=== PATIENT | male | born 1995 | race African-American/Black ===

== ENCOUNTER → 2023-07-05 | Outpatient (CLI) | payer OTHER ==
[~2023-07-05] MED LIST: ISOVUE-370 76% 100ML VIAL As Ordered ONE
== END ==
LOC: M RAD 09:29
PROVIDERS: ATTEND Otolaryngology
DX: Q18.1 Preauricular sinus and cyst (principal)
CPT/HCPCS: 70491; Q9967

== ENCOUNTER 2023-10-25 12:39 | Day surgery (SDC) | payer OTHER ==
[~2023-10-25] VITALS: Ht 182.9 cm; Wt 72.6 kg
[~2023-10-25 12:39] MED LIST changes: +IBUP-1022 PO; -ISOVUE-370 76% 100ML VIAL As Ordered ONE; +THERTAB52 PO
[2023-10-25] MEDS ORDERED: [UNRECOGNIZED DRUG - OTHER] PO (13:04)
[2023-10-25] MEDS ORDERED: EQL50TAB2 PO (13:04)
[2023-10-25] MEDS ORDERED: VITA100093 PO (13:04)
[2023-10-25] MEDS: LR 1,000 ML IV SCH (13:30)
[2023-10-25] MEDS ORDERED: ONDANSETRON 4MG 2ML VIAL As Ordered ONE (14:20)
[2023-10-25] MEDS ORDERED: LIDOCAINE 2% 100MG/5ML SDV (FOR ANES.) As Ordered ONE (14:20)
[2023-10-25] MEDS ORDERED: propofoL 200 MG/20 ML VIAL As Ordered ONE (14:20)
[2023-10-25] MEDS ORDERED: MIDAZOLAM INJ 2MG/2ML VIAL As Ordered ONE (14:20)
[2023-10-25] MEDS ORDERED: fentaNYL 100 MCG/2 ML INJECTION As Ordered ONE (14:20)
[2023-10-25] MEDS ORDERED: BACITRACIN OINTMENT 30GM TUBE As Ordered ONE (14:47)
[2023-10-25] MEDS ORDERED: ACETAMINOPHEN 1000MG 100ML IV BAG As Ordered ONE (15:32)
[2023-10-25] MEDS: LIDOCAINE W/EPINEPHRINE 1% 20ML VIAL As Ordered ONE (16:21)
[2023-10-25] MEDS ORDERED: HYDROMORPHONE HCL 0.5 MG/ 0.5 ML SYRINGE IV PRN (16:55)
[2023-10-25] MEDS ORDERED: ONDANSETRON 4MG 2ML VIAL IV PRN (16:55)
[2023-10-25] MEDS ORDERED: fentaNYL 100 MCG/2 ML INJECTION IV PRN (16:55)
[2023-10-25] MEDS: oxyCODONE 5MG TAB PO PRN (17:26)
[2023-10-25 18:00] VITALS: BP 148/88; TEMP 97.9; O2SAT 100
== END 2023-10-25 18:17 | disposition home or self-care (01) ==
LOC: M SDC 12:39
PROVIDERS: ATTEND Otolaryngology
DX: Q18.1 Preauricular sinus and cyst (principal); F17.290 Nicotine dependence, other tobacco product, uncomplicated; Z86.15 Personal history of latent tuberculosis infection
CPT/HCPCS: 11441; 12051; 88304; J0131; J1100; J2250; J2405; J3010